=== PATIENT | male | born 1970 | race Caucasian/White ===

== ENCOUNTER 2024-05-28 15:09 | Outpatient (CLI) | payer OTHER, SELFPAY | END 2024-05-28 15:10 | disposition home or self-care (01) | PROVIDERS: Visit Provider Internal Medicine | DX: H53.9 Unspecified visual disturbance (principal); Z12.5 Encounter for screening for malignant neoplasm of prostate; Z13.6 Encounter for screening for cardiovascular disorders | CPT/HCPCS: 80053; 80061; G0103 ==